=== PATIENT | female | born 1955 | race Caucasian/White ===

== ENCOUNTER 2018-02-08 08:24 | Day surgery (SDC) | payer BC, SELFPAY ==
[2018-02-08 08:47] VITALS: BP 140/87; PULSE 76; RESP 16; TEMP 35.6; O2SAT 98
[2018-02-08] MEDS: Lactated Ringers 1,000 ML 80 ML IV (09:08)
--- NOTE | 2018-02-08 09:50 | BOWEL_PTH ---
PATIENT: Edie Gaviria LOC: [facility] U#:[id number] AGE/SX: 62/F ROOM: RE02/08/[address]: Peri Nguyen MD : 1955 BED: DIS: 02/08/2018 SPEC #: [id number] RECD: 02/08/18 12:12 STATUS: MAN RE #: [id number] JOHNNY: 02/08/18 09:[address]: Peri Nguyen DEPT: Surgical Specimen RECD BY: Lavonne Kaufman ENTERED: 02/08/18 12:12 SP TYPE: Bowel OTHR DR: Ryan Booth Tissues: 1 - BIOPSY BOWEL Procedures: GROSS AND MICRO LEVEL 4 Comments: [id number]
--- NOTE | 2018-02-08 10:11 | W.PM.DSUDISC ---
Discharge Plan Discharge Details Reason For Visit: SCREENING Attending Provider: Peri Nguyen Primary Care Provider: Ryan Booth Disposition Patient Disposition: HOME Home Meds and New Rx's Prescriptions: Continue cyclobenzaprine 10 MG tablet 10 mg PO tid prn RF: 0 lisinopril 10 MG tablet 10 mg PO DAILY RF: 0 clonazepam 0.5 MG tablet,disintegrating 0.25 - 0.5 mg PO PRN RF: 0 Discontinued bisacodyl [Bisa-Lax] 5 MG tablet,delayed release (DR/EC) 5 mg PO as directed Qty: 4 RF: 0 polyethylene glycol 3350 255 GM powder 255 gm PO as directed for colo Qty: 255 RF: 0 Discharge Instructions Instructions: Colonoscopy (DC), Diverticulosis (DC) Additional Instructions: Findings: 1. one polyp 2. Diverticulosis Follow up: 3-5 years New medications: none Diet: High fiber Please call or go to the ED if you develop: fevers >101.5 Nausea or Vomiting Abdominal pain that is not transient 1. Because there will be medication in your system for the next 24 hours, you may feel a little sleepy. Your coordination will be affected. Therefore: a. Do not drive or operate dangerous equipment for 24 hours. b. Do not drink alcohol beverages for 24 hours (not even beer). c. Plan to go home and rest for the day. 2. Generally there are no restrictions on your activity after a day or so has gone by, but you may feel a bit fatigued for a few days. 3 After you arrive home you may have a light meal and return to a normal diet as you can tolerate it without feeling sick to your stomach. 4. After surgery, you may feel pain or discomfort. This should be only transient, but if it persists please contact your doctor. 5. If there are any questions regarding the findings of your procedure, please feel free to contact your doctor. 6. If you are unable to contact your doctor with a problem, contact the hospital at [phone]. 7. Continue all your regular medications unless directed otherwise. I understand the above instructions and have no questions. Signature of Patient or Responsible Adult Escort Date/Time Name of Responsible Adult Escort Signature of Nurse Date/Time Activity:: Activity as Tolerated Diet:: high fiber diet Discharge Orders Discharge Orders: Discharge Order (Routine); Ordered 02/08/18 Ordered By: Peri Nguyen
--- NOTE | 2018-02-08 10:15 | PDOC.DSDIS_ITS ---
Discharge Plan Discharge Details Reason For Visit: SCREENING Attending Provider: Peri Nguyen Primary Care Provider: Ryan Booth Disposition Patient Disposition: HOME Home Meds and New Rx's Prescriptions: Continue cyclobenzaprine 10 MG tablet 10 mg PO tid prn RF: 0 lisinopril 10 MG tablet 10 mg PO DAILY RF: 0 clonazepam 0.5 MG tablet,disintegrating 0.25 - 0.5 mg PO PRN RF: 0 Discontinued bisacodyl [Bisa-Lax] 5 MG tablet,delayed release (DR/EC) 5 mg PO as directed Qty: 4 RF: 0 polyethylene glycol 3350 255 GM powder 255 gm PO as directed for colo Qty: 255 RF: 0 Discharge Instructions Instructions: Colonoscopy (DC), Diverticulosis (DC) Additional Instructions: Findings: 1. one polyp 2. Diverticulosis Follow up: 3-5 years New medications: none Diet: High fiber Please call or go to the ED if you develop: fevers >101.5 Nausea or Vomiting Abdominal pain that is not transient 1. Because there will be medication in your system for the next 24 hours, you may feel a little sleepy. Your coordination will be affected. Therefore: a. Do not drive or operate dangerous equipment for 24 hours. b. Do not drink alcohol beverages for 24 hours (not even beer). c. Plan to go home and rest for the day. 2. Generally there are no restrictions on your activity after a day or so has gone by, but you may feel a bit fatigued for a few days. 3 After you arrive home you may have a light meal and return to a normal diet as you can tolerate it without feeling sick to your stomach. 4. After surgery, you may feel pain or discomfort. This should be only transient , but if it persists please contact your doctor. 5. If there are any questions regarding the findings of your procedure, please feel free to contact your doctor. 6. If you are unable to contact your doctor with a problem, contact the hospital at [phone]. 7. Continue all your regular medications unless directed otherwise. I understand the above instructions and have no questions. Signature of Patient or Responsible Adult Escort Date/Time Name of Responsible Adult Escort Signature of Nurse Date/Time Activity:: Activity as Tolerated Diet:: high fiber diet Discharge Orders Discharge Orders: Discharge Order (Routine); Ordered 02/08/18 Ordered By: Peri Nguyen
--- NOTE | 2018-02-08 10:15 | W.COLOREPORT ---
Date of service: 02/08/18 Time of Service: 10:15 Colonoscopy Report Date of procedure: 02/08/18 Pre-op diagnosis general: Screening colonoscopy Post-op diagnosis procedure note: other ( polyp and diverticulosis) Procedure: Colonoscopy Anesthesia proc note operative: MAC Estimated blood loss (mL): 2 Pathology: other (cecal polyp) Complications: None Disposition: same day Indications: Patient is a 62 year old female who was seen in the office for a follow up colonoscopy. Her last colonoscopy was 10 years ago and was normal. Prep: Miralax (adequate) Procedure Start Time: :34 Procedure End Time: 10:02 Findings: One cecal polyp and moderate diverticulosis Procedure Description: After informed consent was obtained the patient was taken to the procedure room. Monitors were applied and she was placed in a left decubitous position. A time out was done. The patients name, date of , allergies to medications, metal in her body and procedure type was reviewed. The patient was then sedated. Once sedated and comfortable a rectal exam was done. External exam was normal. Internal exam revealed normal sphincter tone and no palpable masses. The scope was introduced and retroflexed. No internal hemorrhoids were noted. The scope was straightened and advanced to the cecum. The TI and appendiceal orifice was identified. The prep was adequate. The scope was retracted over 15 minutes back to the rectum. There was one small polyp removed with forceps in the cecum. Moderate diverticulosis was noted in the descending and sigmoid colon. The patient was woken up and taken back to same day surgery in stable condition.
[2018-02-08 10:30] VITALS: BP 95/65; PULSE 61; RESP 16; TEMP 36.2; O2SAT 93
[2018-02-08 11:11] VITALS: BP 100/72; PULSE 50; RESP 16; TEMP 36; O2SAT 98
== END 2018-02-08 11:35 | disposition home or self-care (01) ==
PROVIDERS: PCP Internal Medicine; Visit Provider Surgery
PROC: 0DJD8ZZ Inspection of Lower Intestinal Tract, Via Natural or Artificial Opening Endoscopic (ICD-10-PCS; CPT 45378; principal; 2018-02-08 09:05)
DX: Z12.11 Encounter for screening for malignant neoplasm of colon (principal); D12.0 Benign neoplasm of cecum; I10 Essential (primary) hypertension
CPT/HCPCS: 45380; 88305

== ENCOUNTER 2019-04-13 16:48 | Outpatient (REF) | payer MEDICARE, SELFPAY ==
[2019-04-13 22:38] LABS: Anion Gap 10.1 mmol/L (3-11); BUN 21 mg/dL (7-18); CO2 27.9 mmol/L (21.0-32.0); CREATININE 0.68 mg/dL (0.55-1.02); Calcium 9.6 mg/dL (8.5-10.1); Calculated LDL 99 mg/dL; Chloride 101 mmol/L (98-107); Cholesterol 217 mg/dL (50-200); Glucose 102 mg/dL (70-100); HDL Cholesterol 103 mg/dL (40-60); Potassium 4.5 mmol/L (3.5-5.1); Sodium 139 mmol/L (136-145); Triglyceride 76 mg/dL (30-150)
== END 2019-04-13 17:08 ==
LOC: NCHCN 16:48
PROVIDERS: PCP Internal Medicine; Visit Provider Internal Medicine
DX: I10 Essential (primary) hypertension (principal)
CPT/HCPCS: 80048; 80061

== ENCOUNTER 2020-04-15 13:31 | Outpatient (REF) | payer MEDICARE, SELFPAY ==
[2020-04-15 21:08] LABS: Anion Gap 8.5 mmol/L (3-11); BUN 20 mg/dL (7-18); CO2 29.5 mmol/L (21.0-32.0); CREATININE 0.84 mg/dL (0.55-1.02); Calcium 9.2 mg/dL (8.5-10.1); Chloride 103 mmol/L (98-107); Glucose 67 mg/dL (74-106); Potassium 4.4 mmol/L (3.5-5.1); Sodium 141 mmol/L (136-145); TSH 1.14 uIU/mL (0.36-3.74)
== END 2020-04-15 13:51 ==
LOC: NCHCN 13:31
PROVIDERS: PCP Internal Medicine; Visit Provider Internal Medicine
DX: I10 Essential (primary) hypertension (principal)
CPT/HCPCS: 80048; 84443

== ENCOUNTER 2020-11-29 16:05 | Outpatient (REF) | payer MEDICARE, SELFPAY ==
[2020-11-29 21:52] LABS: ALT 21 U/L (14-59); AST 13 U/L (15-37); Albumin 3.8 g/dL (3.4-5.0); Alkaline Phosphatase 87 U/L (46-116); Bilirubin, Direct 0.1 mg/dL (0.0-0.2); Bilirubin, Total 0.4 mg/dL (0.2-1.0); Total Protein 7.5 g/dL (6.4-8.2)
== END 2020-11-29 16:06 | disposition home or self-care (01) ==
LOC: NCHCN 16:05
PROVIDERS: PCP Internal Medicine; Visit Provider Internal Medicine
DX: Z00.00 Encounter for general adult medical examination without abnormal findings (principal); I10 Essential (primary) hypertension
CPT/HCPCS: 80076

== ENCOUNTER 2021-01-06 20:14 | Outpatient (REF) | payer MEDICARE, SELFPAY ==
[2021-01-06 20:56] LABS: Abs Immature Grans 0.01 10^3/uL (0.0-0.06); Absolute Basophil Count 0.04 10^3/uL (0.0-0.2); Absolute Eosinophil Count 0.33 10^3/uL (0.0-0.7); Absolute Lymphocyte Count 1.51 10^3/uL (1.2-3.4); Absolute Monocyte Count 0.96 10^3/uL (0.1-0.8); Absolute Neutrophil Count 4.61 10^3/uL (1.2-6.7); Basophils % 0.5; Eosinophils % 4.4; HCT 43.5 % (36.0-46.0); HGB 14.1 g/dL (11.2-15.7); Immature Grans % 0.1; Lymphocytes % 20.2; MCH 29.5 pg (27.0-33.0); MCHC 32.4 % (32.0-36.0); MPV 9.5 fL (8.0-11.0); Monocytes % 12.9; Neutrophils % 61.9; Nucleated RBC 0 %; Platelet Count 410 10^3/uL (130-400); RBC 4.78 10^6/uL (3.93-5.22); RDW 12.7 % (11.7-14.6); RDW-SD 42.6 fL; WBC 7.46 10^3/uL (4.4-10.8)
[2021-01-06 21:03] LABS: ESR 67 mm/hr (0-30)
[2021-01-06 21:45] LABS: ALT 39 U/L (14-59); AST 25 U/L (15-37); Albumin 3.8 g/dL (3.4-5.0); Alkaline Phosphatase 97 U/L (46-116); Anion Gap 8.6 mmol/L (3-11); BUN 15 mg/dL (7-18); Bilirubin, Total 0.2 mg/dL (0.2-1.0); CO2 28.4 mmol/L (21.0-32.0); CREATININE 0.7 mg/dL (0.55-1.02); Calcium 9.2 mg/dL (8.5-10.1); Chloride 102 mmol/L (98-107); Glucose 100 mg/dL (74-106); Potassium 4.3 mmol/L (3.5-5.1); Sodium 139 mmol/L (136-145); TSH (W/Ref FT4) 2.23 uIU/mL (0.36-3.74); Total Protein 7.8 g/dL (6.4-8.2)
[2021-01-06 21:54] LABS: C-Reactive Protein 1.38 mg/dL (0.0-0.3)
[2021-01-08 11:21] LABS: Lyme Ab w Rflx to Lyme Confirm Negative (Negative)
[2021-01-09 01:02] LABS: Anaplasma phagocytophilum Negative (Negative); B. miyamotoi PCR Negative (Negative); Babesia divergens/MO-1 Negative (Negative); Babesia duncani Negative (Negative); Babesia microti Negative (Negative); Ehrlichia chaffeensis Negative (Negative); Ehrlichia ewingii/canis Negative (Negative); Ehrlichia muris eauclairensis Negative (Negative)
== END 2021-01-06 20:15 | disposition home or self-care (01) ==
LOC: NCHCN 20:14
PROVIDERS: PCP Internal Medicine; Visit Provider Internal Medicine
DX: M79.18 Myalgia, other site (principal)
CPT/HCPCS: 80053; 85652; 87798; 84443; 85025; 86140; 86618

== ENCOUNTER 2021-02-03 20:29 | Outpatient (REF) | payer MEDICARE, SELFPAY ==
[2021-02-03 21:02] LABS: C-Reactive Protein 0.12 mg/dL (0.0-0.3)
[2021-02-03 21:12] LABS: ESR 14 mm/hr (0-30)
== END 2021-02-03 20:30 | disposition home or self-care (01) ==
LOC: LBN 20:29
PROVIDERS: PCP Internal Medicine; Visit Provider Internal Medicine
DX: M35.3 Polymyalgia rheumatica (principal)
CPT/HCPCS: 85652; 86140

== ENCOUNTER 2021-04-04 20:38 | Outpatient (REF) | payer MEDICARE, SELFPAY ==
[2021-04-04 20:42] LABS: C-Reactive Protein 1.17 mg/dL (0.0-0.3); ESR 37 mm/hr (0-30)
== END 2021-04-04 20:39 | disposition home or self-care (01) ==
LOC: NCHCN 20:38
PROVIDERS: PCP Internal Medicine; Visit Provider Internal Medicine
DX: M35.3 Polymyalgia rheumatica (principal); M25.512 Pain in left shoulder; M89.8X8 Other specified disorders of bone, other site
CPT/HCPCS: 85652; 86140

== ENCOUNTER 2021-11-26 17:18 | Outpatient (REF) | payer MEDICARE, SELFPAY ==
[2021-11-26 15:53] LABS: Anion Gap 6.3 mmol/L (3-11); BUN 23 mg/dL (7-18); CO2 33.7 mmol/L (21.0-32.0); CREATININE 0.8 mg/dL (0.55-1.02); Calcium 9.6 mg/dL (8.5-10.1); Calculated LDL 100 mg/dL (<100); Chloride 102 mmol/L (98-107); Cholesterol 193 mg/dL (<200); Glucose 87 mg/dL (74-106); HDL Cholesterol 77 mg/dL (40-60); Potassium 4.4 mmol/L (3.5-5.1); Sodium 142 mmol/L (136-145); Triglyceride 80 mg/dL (<150)
== END 2021-11-26 17:19 | disposition home or self-care (01) ==
LOC: NCHCN 17:18
PROVIDERS: PCP Internal Medicine; Visit Provider Internal Medicine
DX: I10 Essential (primary) hypertension (principal); R63.5 Abnormal weight gain; Z13.220 Encounter for screening for lipoid disorders
CPT/HCPCS: 80048; 80061

== ENCOUNTER 2022-02-04 16:41 | Outpatient (REF) | payer MEDICARE, SELFPAY ==
[2022-02-04 17:51] LABS: ALT 25 U/L (14-59); AST 16 U/L (15-37); Albumin 4.1 g/dL (3.4-5.0); Alkaline Phosphatase 89 U/L (46-116); Bilirubin, Direct 0.1 mg/dL (0.0-0.2); Bilirubin, Total 0.4 mg/dL (0.2-1.0); Total Protein 8.3 g/dL (6.4-8.2)
== END 2022-02-04 16:42 | disposition home or self-care (01) ==
LOC: NCHCN 16:41
PROVIDERS: PCP Internal Medicine; Visit Provider Internal Medicine
DX: B35.1 Tinea unguium (principal)
CPT/HCPCS: 80076

== ENCOUNTER 2023-03-19 18:00 | Outpatient (REF) | payer MEDICARE, SELFPAY ==
[2023-03-19 15:17] LABS: HCT 44.3 % (36.0-46.0); MCH 29.3 pg (27.0-33.0); MCHC 31.6 % (32.0-36.0); MCV 93 fL (80-95); MPV 9.6 fL (8.0-11.0); Platelet Count 479 10^3/uL (130-400); RBC 4.78 10^6/uL (3.93-5.22); RDW-SD 44.4 fL; WBC 9.03 10^3/uL (4.4-10.8)
[2023-03-19 15:54] LABS: ALT 19 U/L (14-59); AST 16 U/L (15-37); Albumin 3.7 g/dL (3.4-5.0); Alkaline Phosphatase 88 U/L (46-116); Anion Gap 9.7 mmol/L (3-11); BUN 14 mg/dL (7-18); Bilirubin, Total 0.4 mg/dL (0.2-1.0); C-Reactive Protein 0.74 mg/dL (0.0-0.3); CO2 27.3 mmol/L (21.0-32.0); CREATININE 0.7 mg/dL (0.55-1.02); Calcium 9.7 mg/dL (8.5-10.1); Calculated LDL 77 mg/dL (<100); Chloride 105 mmol/L (98-107); Cholesterol 183 mg/dL (<200); Estimated GFR 93.56 (mL/min/1.73m2); Glucose 93 mg/dL (74-106); HDL Cholesterol 89 mg/dL (40-60); Potassium 3.7 mmol/L (3.5-5.1); Sodium 142 mmol/L (136-145); Total Protein 8.1 g/dL (6.4-8.2); Triglyceride 89 mg/dL (<150)
--- OUTSIDE RECORDS SUMMARY | 2023-03-19 18:02 | XMS_ITS | CCD ---
Author Name Unknown Address [address] [place] [address] [id number] Organization Unknown Address [address] [place] [address] [id number] Care Team Providers Care Yard Warehouse Worker Name Role Phone ALBA CHEUNG Attending Physician [phone] Vital Signs Unknown or Not Available. Allergies Allergy Code Allergy Type Reaction Status No Known Allergies 0 No known allergies Active Procedures Unknown or Not Available. History of Immunizations Unknown or Not Available. Problems Unknown or Not Available. Results Unknown or Not Available. Active Medications Unknown or Not Available. Medications Administered During Visit Unknown or Not Available. Encounters Encounter Diagnosis Diagnosis Code Start Date Pain in right knee [id number] 07/20/2022 Social History Smoking Status Code Start Date End Date Never smoker [id number] Patient Decision Aids Unknown or Not Available. Discharge Instructions You were admitted to [facility] on 07/20/2022 10:55 with a principal diagnosis of Pain in right knee You were discharged from [facility] on 12/30/2022 15:35 Should you have any questions prior to discharge, please contact a member of your healthcare team. If you have left the hospital and have any questions, please contact your primary care physician. Chief Complaint and Reason For Visit Unknown or Not Available. Function Status Unknown or Not Available. Plan of Care Unknown or Not Available. Referral/Transition of Care Unknown or Not Available.
--- OUTSIDE RECORDS SUMMARY | 2023-03-19 18:02 | XMS_ITS | CCD ---
Author Name Unknown Address [address] [place] [address] [phone] Organization Unknown Address [address] [place] [address] [phone] Care Team Providers Care Linen Checker Name Role Phone MARA CASTANEDA Attending Physician [phone] Vital Signs Unknown or Not Available. Allergies [...] Encounters Encounter Diagnosis Diagnosis Code Start Date Encounter for screening mamm ogram for malignant neoplasm of breast Z1231 01/06/2022 Social History Smoking Status Code Start Date End Date Never smoker [id number] Patient Decision Aids Unknown or Not Available. Discharge Instructions You were admitted to [facility] on 01/06/2022 14:00 with a principal diagnosis of Encounter for screening mammogram for malignant neoplasm of breast You were discharged from [facility] on 01/06/2022 14:00 Should you have any questions prior to discharge, please contact a member of your healthcare team. If you have left the hospital and have any questions, please contact your primary care physician. Chief Complaint and Reason For Visit Chief Complaint Date of Onset POSTMENOPAUSAL, SCR Function Status Unknown or Not Available. Plan of Care Unknown or Not Available. Referral/Transition of Care Unknown or Not Available.
--- OUTSIDE RECORDS SUMMARY | 2023-03-19 18:02 | XMS_ITS | CCD ---
Author Name Unknown Address [address] [place] [address] [phone] Organization Unknown Address [address] [place] [address] [phone] Care Team Providers Care Military Administrative Technician Name Role Phone VIKTOR KRAMER Attending Physician [phone] Vital Signs Vital Sign Value Unit Date/Time Recent/Initial ? BP Systolic 115 mmHg 06/30/2021 10:41 Initial VS BP Diastolic 75 mmHg 06/30/2021 10:41 Initia l VS Respiratory Rate 13 bpm 06/30/2021 10:41 In itial VS Heart Rate 53 bpm 06/30/2021 10:41 Initial VS O2 % BldC Oximetry 96 % 06/30/2021 10:41 Initial VS Allergies Allergy Code Allergy Type Reaction Status No Known Allergies 0 No known allergies Active Procedures Procedure Code Procedure Type Date Colsc Flx [place] [address] CPT 06/30/2021 Colonoscopy Flx w/Endoscopic Mucosal Resection 57096 CPT 06/30/2021 History of Immunizations Unknown or Not Available. Problems Unknown or Not Available. Results Unknown or Not Available. Active Medications Unknown or Not Available. Medications Administered During Visit Unknown or Not Available. Encounters Encounter Diagnosis Diagnosis Code Start Date Encounter for screening for malignant neoplasm o f colon Z1211 06/30/2021 Social History Smoking Status Code Start Date End Date Never smoker [id number] Patient Decision Aids Unknown or Not Available. Discharge Instructions You were admitted to [facility] on 06/30/2021 08:58 with a principal diagnosis of Encounter for screening for malignant neoplasm of colon You had the following procedures done:Colsc Flx w/Rmvl Of Tumor Polyp Lesion Snare TqColonoscopy Flx w/Endoscopic Mucosal Resection You were discharged from [facility] on 06/30/2021 11:21 Should you have any questions prior to [...]
--- OUTSIDE RECORDS SUMMARY | 2023-03-19 18:03 | XMS_ITS | CCD ---
Author Name Unknown Address [address] [place] [address] [phone] Organization Unknown Address [address] [place] [address] [phone] Care Team Providers Care Case Briefer Name Role Phone JONATHON GARZA Attending Physician [phone] Vital Signs Unknown or Not Available. Allergies [...] Encounters Encounter Diagnosis Diagnosis Code Start Date Polymyalgia rheumatica M353 3 Social History Smoking Status Code Start Date End Date Never smoker [id number] Patient Decision Aids Unknown or Not Available. Discharge Instructions You were admitted to [facility] on 02/15/2023 08:35 with a principal diagnosis of Polymyalgia rheumatica You were discharged from [facility] Should you have any questions prior to [...]
[2023-03-22 10:33] LABS: Lyme Ab w Rflx to Lyme Confirm Negative (Negative)
[2023-03-22 11:37] LABS: ESR (LRH) 25 mm/hr
== END 2023-03-19 18:01 | disposition home or self-care (01) ==
LOC: NCHCN 18:00
PROVIDERS: PCP Internal Medicine; Visit Provider Internal Medicine
DX: I10 Essential (primary) hypertension (principal); M35.3 Polymyalgia rheumatica; Z00.00 Encounter for general adult medical examination without abnormal findings
CPT/HCPCS: 80053; 80061; 85027; 85652; 86140; 86618

== ENCOUNTER 2024-10-23 15:15 | Outpatient (REF) | payer MEDICARE, SELFPAY ==
[2024-10-23 22:29] LABS: ALT 31 U/L (14-59); AST 27 U/L (15-37); Alkaline Phosphatase 104 U/L (46-116); Anion Gap 5.8 mmol/L (3-11); BUN 15 mg/dL (7-18); Bilirubin, Total 0.4 mg/dL (0.2-1.0); CO2 30.2 mmol/L (21.0-32.0); CREATININE 0.7 mg/dL (0.55-1.02); Calcium 9.8 mg/dL (8.5-10.1); Calculated LDL 108 mg/dL (<100); Chloride 102 mmol/L (98-107); Cholesterol 205 mg/dL (<200); Estimated GFR 92.41 (mL/min/1.73m2); Glucose 86 mg/dL (74-106); HDL Cholesterol 83 mg/dL (>or=50); Sodium 138 mmol/L (136-145); Total Protein 8.5 g/dL (6.4-8.2); Triglyceride 73 mg/dL (<150)
== END 2024-10-23 15:16 | disposition home or self-care (01) ==
LOC: NCHCN 15:15
PROVIDERS: PCP Internal Medicine; Visit Provider Internal Medicine
DX: I10 Essential (primary) hypertension (principal)
CPT/HCPCS: 80053; 80061

== ENCOUNTER 2024-11-30 15:26 | Outpatient (REF) | payer MEDICARE, SELFPAY ==
[2024-12-04 10:05] LABS: Anaplasma phagocytophilum Negative (Negative); B. miyamotoi PCR Negative (Negative); Babesia divergens/MO-1 Negative (Negative); Babesia duncani Negative (Negative); Babesia microti Negative (Negative); Ehrlichia chaffeensis Negative (Negative); Ehrlichia ewingii/canis Negative (Negative); Ehrlichia muris eauclairensis Negative (Negative)
[2024-12-04 11:37] LABS: Lyme Ab w Rflx to Lyme Confirm Negative (Negative)
== END 2024-11-30 15:27 | disposition home or self-care (01) ==
LOC: NCHCN 15:26
PROVIDERS: PCP Internal Medicine; Visit Provider Family Medicine
DX: M25.461 Effusion, right knee (principal); W57.XXXA Bitten or stung by nonvenomous insect and other nonvenomous arthropods, initial encounter
CPT/HCPCS: 87798; 86618

== ENCOUNTER → 2025-04-25 10:32 | Outpatient (BNVA) | payer MEDICARE, SELFPAY | PROVIDERS: PCP Internal Medicine; Referring Provider Internal Medicine; Visit Provider Physical Therapy Assistant | DX: Z12.11 Encounter for screening for malignant neoplasm of colon (principal); Z86.0101 Personal history of adenomatous and serrated colon polyps ==

== ENCOUNTER 2025-05-16 11:19 | Day surgery (SDC) | payer MEDICARE, SELFPAY ==
--- NOTE | 2025-05-15 17:38 | W.ANESPRE ---
General Info Date of Service Date Performed: 05/16/25 Height: 5 ft 3.5 in Weight: 63.957 kg Body Mass Index (BMI): 24.5 Surgical Procedure: Operation Date: 05/16/25 12:35 Proposed Procedure Side Surgeon leeann Dejesus MD Meds Allergies and Home Medications Allergies Allergy/AdvReac Type Severity Reaction Status Date / Time tree and shrub pollen AdvReac Mild Other (See Verified 05/16/25 11:56 Comment) Home Medication ?Medication ?Instructions ?Recorded clonazepam 0.5 mg disintegrating 0.25 - 0.5 mg PO PRN 11/23/17 tablet cyclobenzaprine 10 mg tablet 10 mg PO tid prn 11/23/17 buspirone 10 mg tablet 10 mg PO BID PRN 04/17/25 calcium 500 mg tab PO 04/17/25 (carb,gluconate)-magnesium 250 mg (gluc,oxide) tablet cholecalciferol (vitamin D3) 10 10 mcg PO DAILY 04/17/25 mcg (400 unit) capsule hydrochlorothiazide 12.5 mg capsule 12.5 mg PO DAILY 04/17/25 losartan 50 mg tablet 50 mg PO DAILY 04/17/25 bisacodyl 5 mg tablet,delayed 5 mg PO ONCE #4 tabs 04/25/25 release (Dulcolax (bisacodyl)) polyethylene glycol 3350 17 17 g PO ONCE #238 grams 04/25/25 gram/dose oral powder Current Visit Medications: Current Medications Generic Name Dose Route Start Last Admin Trade Name Freq PRN Reason Stop Dose Admin Ringer's Solution 1,000 mls @ 80 mls/hr 05/16/25 06:00 IV 05/16/25 23:59 INFUSION YEISON Sodium Chloride 0 ml 05/16/25 06:00 Normal Saline Flush 10 Ml Syr IV 05/16/25 23:59 PRN PRN Sodium Chloride 0 ml 05/16/25 06:00 Normal Saline 10 Ml Vial IJ 05/16/25 23:59 DIRECTED PRN Sterile Water 0 ml 05/16/25 06:00 Water,Injection,Sterile 10 Ml Vial IJ 05/16/25 23:59 DIRECTED PRN PFSH Active Problems Active Problems: Problem Status Onset Code Osteopenia Acute M85.80 Onychomycosis due to dermatophyte Acute B35.1 Fatigue Acute R53.83 Polymyalgia rheumatica Acute M35.3 Adjustment disorder Chronic F43.20 Medical History Medical History Gallstone Thrombocytosis Umbilical hernia Bursitis of right knee Pain, joint, shoulder, left History of colon polyps Left ankle injury Hypertension Acute low back pain Complicated grief Depression with anxiety Surgical History Surgical History Hx of umbilical hernia repair (~2023) Abdominal hysterectomy 1993 Colonoscopy - MAC (01/12/07) 2018-polyp and diverticulosis Tobacco Smoking/Tobacco Use Status: Never Alcohol Alcohol Intake: current Alcohol intake frequency: a few times a week Alcohol type: wine Substance Use Substance use: Never Substance use type: marijuana Details: gummies Anesthesia Assessment and Plan Anesthesia History Personal History: No History of Anesthesia Complications Family History: No Family History of Anesthesia Complications Exercise Tolerance Exercise Tolerance: Metabolic Equivalents>4 Pertinent Negatives Pertinent Negatives: No Symptoms of GERD, No Major Cardiovascular Symptoms or Complaints, No Major Pulmonary Symptoms or Complaints and No History of CVA/TIA Cardiac & Pulmonary Exam Cardiac Exam: Normal S1/S2 Heart Sounds Pulmonary Exam: Clear Bilateral Breath Sounds Implantable Cardiac Device Does patient have a Pacemaker or an ICD?: No Airway Exam Known Difficult Airway: No Mallampati Class: 2 Mouth Opening: Normal (> 3cm) Thyromental Distance: Greater than 3 cm Neck Range of Motion: Full ROM Neck Circumference: Normal Teeth Condition: Normal Dentition ASA Classification ASA Score: ASA 2 Emergency Case?: No NPO Status NPO Status: NPO Clears >2 hours, Solids >8 hours Anesthesia Plan Resuscitation Status: Full Code Anesthesia Technique: General Anesthesia Airway Planned: Natural Airway Monitors Used: Standard Monitors Preoperative Comments:: 69 yo for colo. Sig PMHx: HTN (losartan, HCTZ), depression/anxiety. Never smoker, occ EtOH/cannabis. Previous Anes: - colo, prop, natural airway, no issues.
[2025-05-16 12:00] VITALS: BP 160/93; PULSE 78; RESP 16; TEMP 36.5; O2SAT 97
[2025-05-16] MEDS: Lactated Ringers 1,000 ML 80 ML IV (12:22)
[2025-05-16 13:05] VITALS: BMI 24.5
--- NOTE | 2025-05-16 13:33 | BOWEL_PTH ---
PATIENT: Edie Gaviria LOC: [facility] U#:[id number] AGE/SX: 69/F ROOM: RE05/16/[address]: Tabitha Dejesus : 1955 BED: DIS: 05/16/2025 SPEC #: [id number] RECD: 05/16/25 17:57 STATUS: MAN RE #: [id number] JOHNNY: 05/16/25 13:[address]: Tabitha Dejesus DEPT: Surgical Specimen RECD BY: Lavonne Kaufamn ENTERED: 05/16/25 17:57 SP TYPE: Bowel OTHR DR: Ryan Booth Tissues: 1 - BIOPSY BOWEL Procedures: GROSS AND MICRO LEVEL 4 Comments: [id number]
[2025-05-16 13:40] VITALS: BP 129/77; PULSE 68; RESP 16; TEMP 36.3; O2SAT 97
--- NOTE | 2025-05-16 13:41 | W.PM.DSUDISC ---
Date of service: 05/16/25 Discharge Plan Disposition Patient Disposition: Home Condition: Good Discharge Details Reason For Visit: Personal history of polyps Attending Provider: Tabitha Dejesus Primary Care Provider: Ryan Booth Recommendations for Follow Up Recommended tests to be ordered by follow up provider: Follow up pathology Home Meds and New Rx's Prescriptions: Continued cyclobenzaprine 10 MG tablet 10 mg PO tid prn clonazepam 0.5 MG tablet,disintegrating 0.25 - 0.5 mg PO PRN losartan 50 mg tablet 50 mg PO DAILY buspirone 10 mg tablet 10 mg PO BID PRN hydrochlorothiazide 12.5 mg capsule 12.5 mg PO DAILY calcium carb,gluc-mag gluc,ox 500 mg calcium- 250 mg tablet PO Discontinued bisacodyl [Dulcolax (bisacodyl)] 5 mg tablet,delayed release (DR/EC) 5 mg PO ONCE Qty: 4 0RF Rx Instructions: Take per colonoscopy instructions provided by ordering providers office polyethylene glycol 3350 17 gram/dose powder 17 g PO ONCE Qty: 238 0RF Rx Instructions: Take per colonoscopy instructions provided by ordering providers office No Action cholecalciferol (vitamin D3) 10 mcg (400 unit) capsule 10 mcg PO DAILY Discharge Instructions Instructions: Diverticulosis Additional Instructions: Your procedure went well today. You had evidence of diverticulosis or small outpouchings of the colon. You had one small polyp which was removed and sent to pathology. When this pathology returns we will contact you with results and recommendations for when to have a repeat colonoscopy. Please contact the general surgery office if you have any questions or concerns. 1. If tolerated, consume a soft, low fiber diet for 1-2 days. 2[address] Do not drive, drink alcohol, operate machinery, make critical decisions, or do activities that require coordination or balance for 24 hours. 3. Because air was put into your colon during the procedure, expelling air from your rectum (passing gas or farting) is normal. 4. You may not have a bowel movement for 1-3 days because of the colonoscopy prep. This is normal. 5. Go directly to the emergency room if you notice any of the following: Develop chills (warm to touch), or if you have a thermometer and your temperature is above 101 Difficulty breathing or difficultly swallowing Persistent vomiting Severe abdominal pain, other than gas cramps Severe chest pain Black, tarry stools Any bleeding ? exceeding one tablespoon 6. Call your physician if the site where your intravenous was started becomes red, swollen, painful, and warm to touch. 7. Your physician has reviewed your pre-procedure medications. Please continue to take those medications as previously ordered. You will be given specific information/education regarding any changes to your medications before leaving. Stand Alone Forms: Anesthesia Discharge Inst., Mary Phelan ([facility]), Portal Information Activity:: Activity as Tolerated Diet:: As Tolerated Discharge Orders Discharge Orders: Discharge Order (Routine); Ordered 05/16/25 Ordered By: Tabitha Dejesus
--- NOTE | 2025-05-16 13:45 | W.COLOREPORT ---
Date of service: 05/16/25 Time of Service: 13:45 Colonoscopy Report Date of procedure: 05/16/25 Pre-op diagnosis general: Personal history of polyps Post-op diagnosis procedure note: same Procedure: Colonoscopy with polypectomy Surgeon: Tabitha Dejesus Anesthesia Type: General:No Airway Estimated blood loss (mL): 1 Pathology: other (Rectal polyp ) Complications: None Disposition: PACU Indications: Patient is a 69 yo female who presents for a surveillance colonoscopy given personal history of polyps. She denies any changes in bowel habits. Prep: Miralax/Dulcolax Procedure Start Time: 13:15 Procedure End Time: 13:36 Retraction Time: 14 Findings: Evidence of sigmoid diverticulosis. Small rectal polyp removed with cold forceps. Procedure Description: The patient was brought to the endoscopy suite and placed in the left lateral decubitus position. After induction of IV sedation, a digital rectal exam was performed. Digital exam was normal. The colonoscope was then passed to the cecum without difficulty. Cecal intubation was confirmed by the identification of the appendiceal orifice and the ileocecal valve. Upon withdrawing the colonoscope, all mucosal surfaces were inspected. The prep was noted to be adequate. In the rectum, there was a small polyp, which was removed using cold forceps in its entirety. Specimen was retrieved for pathological analysis. There was evidence of diverticulosis in the sigmoid colon. Retroflexion in the rectum was unremarkable. The patient tolerated the procedure well with no complications. Postoperatively, the patient was transferred to the recovery room in stable condition. Clarence Bowel Prep Clarence Bowel Prep Right Colon: 3 Left Colon: 3 Transverse Colon: 3 Total Score: 9
[2025-05-16 14:08] VITALS: BP 129/83; PULSE 63; RESP 16; TEMP 36.4; O2SAT 98
--- NOTE | 2025-05-16 14:25 | W.ANESPOSTOP ---
Postoperative Evaluation Date, Time and Location Date Performed: 05/16/25 Time Performed: 14:26 Patient Location: Day Surgery Unit Vital Signs Most Recent Imported Vital Signs: Most Recent Vital Signs Temp Pulse Resp BP Pulse Ox 36.3 C L 68 16 129/77 97 05/16/25 13:40 05/16/25 13:40 05/16/25 13:40 05/16/25 13:40 05/16/25 13:40 Pain Score Most Recent Pain Score: Most Recent Pain Score Pain Level 0 05/16/25 13:40 Assessment Mental Status: Awake (Alert & Oriented to Patient Baseline) Airway and Respiratory Function: Patent airway with normal (patient baseline) respiratory exam Cardiovascular Function: Hemodynamically Stable Hydration Status: Adequately Hydrated Nausea & Vomiting: No Nausea or Vomiting Pain: Pt. Denies Any Pain Peripheral Nerve Block: Patient did not receive a nerve block
== END 2025-05-16 14:39 | disposition home or self-care (01) ==
PROVIDERS: PCP Internal Medicine; Visit Provider Student in an Organized Health Care Education/Training Program
PROC: 0DJD8ZZ Inspection of Lower Intestinal Tract, Via Natural or Artificial Opening Endoscopic (ICD-10-PCS; CPT 45378; principal; 2025-05-16 12:30)
DX: Z12.11 Encounter for screening for malignant neoplasm of colon (principal); I10 Essential (primary) hypertension; K57.30 Diverticulosis of large intestine without perforation or abscess without bleeding; D12.8 Benign neoplasm of rectum
CPT/HCPCS: 45380; 88305; J2003; J2704